=== PATIENT | male | born 1955 | race Caucasian/White ===

== ENCOUNTER 2018-07-02 05:51 | Inpatient (IN) | payer MEDICARE, OTHER, SELFPAY ==
[2018-07-02] MEDS ORDERED: Norepinephrine 8 MG/0.9% NS 250 ML ONE (06:00)
[2018-07-02 06:16] LABS: Actual Bicarbonate (HCO3a) 20.9 mEq/L (22-28); Analyzer IN Cardio ER; Base Excess (BEa) -9.5 mEq/L (-2.0 to +3.0); Carboxyhemoglobin (COHb) 1.5 gm% (0.0-3.0); Hemoglobin (Hb) 15.3 g/dL (14.0-18.0); O2 Tension (PaO2) 264.7 mmHg (> 80.0); Potassium - ABG Lab 5.09 mmol/L (3.70-5.30)
[2018-07-02 06:18] LABS: CO2 Tension 65.2 mmHg (35.0-45.0); Puncture Site RBA; pH, Arterial 7.12 (7.35-7.45)
[2018-07-02 06:38] LABS: #Basophils 0.1 thou/uL (0.0-0.2); #Eosinphils 0.2 thou/uL (0.0-0.7); #Lymphocytes 2.6 thou/uL (1.20-3.40); #Monocytes 0.4 thou/uL (0.11-0.59); #Neutrophils 7.5 thou/uL (1.40-6.50); %Basophils 1.2 % (0.0-1.0); %Eosinophils 2.1 % (0.0-10.0); %Lymphocytes 23.7 % (21.0-51.0); %Monocytes 3.2 % (0.0-10.0); %Neutrophils 69.8 % (42.0-75.0); Mean Corpuscular HGB CONC 31.1 g/dL (32.0-36.0); Mean Corpuscular Hemoglobin 30.6 pg (27.0-31.0); Mean Corpuscular Volume 98.1 fL (78.0-98.0); Mean Platelet Volume 7.6 fL (7.4-10.4); Platelet Count 245 thou/uL (130-400); RBC Distribution Width 11.5 % (11.5-14.5); Red Blood Cell (RBC) Count 4.92 mill/uL (4.70-6.10); White Blood Cell (WBC) Count 10.7 thou/uL (4.8-10.8)
[2018-07-02 06:44] LABS: INR-International Normal Ratio 1.2; PTT 37.6 SEC (22.9-36.1); Prothrombin Time 15.5 SEC (12.0-14.7)
[2018-07-02 07:01] LABS: CK (CPK) 186 U/L (30-200); CRP (Inflammatory) Less than 0.50 mg/dL (= or < 0.5)
[2018-07-02 07:07] LABS: Acetaminophen Less than 6.0 mcg/mL (10.0-30.0); Alcohol Less than 10 mg/dL (Less than 10); Salicylate Less than 8.0 mg/dL (15.0-30.0)
[2018-07-02] MEDS ORDERED: fentaNYL Citrate/PF 2,000 MCG in Sodium Chloride 0.9% 60 ML IV SCH (07:17)
[2018-07-02 07:26] LABS: CKMB 7.4 ng/mL (0-6.6)
--- NOTE | 2018-07-02 08:04 | RAD ---
SINGLE VIEW CHEST: Date: 07/02/18 COMPARISON: None. HISTORY: Code Blue. CPR in progress. Evaluate tube placement. FINDINGS: Single view of the chest shows a normal sized cardiomediastinal silhouette. Endotracheal tube is seen with its tip in good position at the lower border of the clavicles. A NG tube is seen in the stomach . There is no evidence of consolidation, mass, or pleural effusion. IMPRESSION: Appropriate position of lines and tubes. POS: [facility]
[2018-07-02 08:12] LABS: Actual Bicarbonate (HCO3a) 21.5 mEq/L (22-28); Analyzer IN Cardio ER; Base Excess (BEa) -9.2 mEq/L (-2.0 to +3.0); Calcium, Ionized 1.05 mmol/L (1.12-1.30); Carboxyhemoglobin (COHb) 1.2 gm% (0.0-3.0); Hemoglobin (Hb) 15.2 g/dL (14.0-18.0); O2 Tension (PaO2) 103.1 mmHg (> 80.0); Potassium - ABG Lab 5.47 mmol/L (3.70-5.30)
[2018-07-02] MEDS ORDERED: Norepinephrine 8 MG/0.9% NS 250 ML IVPB SCH (08:15)
[2018-07-02] MEDS ORDERED: Amiodarone In Dextrose 200 ML IVPB SCH (08:15)
[2018-07-02] MEDS ORDERED: Dextrose 50% Abboject 50 ML SYRINGE SLOW IVP PRN (08:17)
[2018-07-02] MEDS ORDERED: Dextrose 5% in Water 1,000 ML IV PRN (08:17)
[2018-07-02] MEDS ORDERED: HumaLOG 300 UNITS/3 ML VIAL SC PRN (08:17)
[2018-07-02 08:37] LABS: CO2 Tension 68.6 mmHg (35.0-45.0); Puncture Site RR; pH, Arterial 7.11 (7.35-7.45)
[2018-07-02] MEDS ORDERED: EPINEPHrine 4 MG in Dextrose 5% in Water 250 ML IVPB SCH (09:30)
[2018-07-02] MEDS ORDERED: Amiodarone 450 MG, Admixture Fee 1 EACH in Dextrose 5% in Water 250 ML IVPB SCH (09:30)
--- NOTE | 2018-07-02 09:36 | RAD ---
SINGLE VIEW OF THE CHEST: Comparison: 07-02-18 History: Swollen abdomen. Intubation. FINDINGS: Single view of the chest shows a cardiomediastinal silhouette which is upper limits of normal in size . An endotracheal tube is seen with its tip between the clavicles. A NG tube courses off the film, li marce within the stomach. There is no evidence of consolidation, mass, or pleural effusion. IMPRESSION: Appropriate position of lines and tubes. POS: [facility]
--- NOTE | 2018-07-02 09:37 | RAD ---
KUB: Comparison: None. History: Abdominal swelling. Intubated. FINDINGS: Single view of the abdomen shows a nonspecific, nonobstructed bowel gas pattern. There are a few air filled loops of small bowel in the left upper quadrant of the abdomen. An NG tube is seen with its ti p in the stomach. A right inguinal catheter is visualized. IMPRESSION: 1. Appropriate position of NG tube. 2. Nonspecific, nonobstructed bowel gas pattern. POS: [facility]
[2018-07-02 09:42] LABS: Actual Bicarbonate (HCO3a) 17.6 mEq/L (22-28); Base Excess (BEa) -10.7 mEq/L (-2.0 to +3.0); CO2 Tension 47.8 mmHg (35.0-45.0); Calcium, Ionized 1.05 mmol/L (1.12-1.30); Carboxyhemoglobin (COHb) 1.5 gm% (0.0-3.0); Hemoglobin (Hb) 16.1 g/dL (14.0-18.0); O2 Tension (PaO2) 68.6 mmHg (> 80.0); Potassium - ABG Lab 5.72 mmol/L (3.70-5.30)
[2018-07-02 09:44] LABS: pH, Arterial 7.18 (7.35-7.45)
[2018-07-02 09:45] LABS: Puncture Site RBA
[2018-07-02 10:04] VITALS: BMI 30.8
[2018-07-02 10:04] LABS: ALT (SGPT) 220 U/L (8-55); AST (SGOT) 192 U/L (5-34); Albumin 3.6 g/dL (3.4-4.8); Alkaline Phosphatase 87 U/L (40-150); Anion Gap 17 mmol/L (10-20); BUN (Urea Nitrogen) 20 mg/dL (8.4-25.7); Bilirubin, Total 0.7 mg/dL (0.2-1.2); Calc. Creatinine Clearance 0 mL/min (70-130); Calcium 8.1 mg/dL (7.8-10.44); Carbon Dioxide 20 mmol/L (23-31); Chloride 106 mmol/L (98-107); Estimated GFR-MDRD 50; Globulin 2.5 g/dL (2.4-3.5); Glucose 277 mg/dL (80-115); Potassium 6.2 mmol/L (3.5-5.1); Protein, Total 6.1 g/dL (5.8-8.1); Sodium 137 mmol/L (136-145)
[2018-07-02] MEDS ORDERED: Sodium Bicarb 50 MEQ/50 ML VIAL ONE (10:08)
[2018-07-02] MEDS ORDERED: Vecuronium 10 MG VIAL ONE (10:09)
[2018-07-02 10:27] LABS: Troponin I 0.397 ng/mL (< 0.028)
[2018-07-02 10:48] LABS: Lactic Acid 5.8 mmol/L (0.5-2.2)
[2018-07-02] MEDS ORDERED: Sodium Bicarb 50 MEQ/50 ML Abboject 8.4% SYRINGE IVP SCH (11:15)
[2018-07-02] MEDS ORDERED: Vecuronium 10 MG VIAL IV SCH (11:15)
[2018-07-02] MEDS: Famotidine/PF 20 mg/2ml Vial SLOW IVP SCH ×2 (12:06→21:02)
[2018-07-02 13:31] LABS: CO2 Tension 42.1 mmHg (35.0-45.0); Calcium, Ionized 1.02 mmol/L (1.12-1.30); O2 Tension (PaO2) 77.3 mmHg (> 80.0); Potassium - ABG Lab 4.51 mmol/L (3.70-5.30); pH, Arterial 7.32 (7.35-7.45)
[2018-07-02 13:32] LABS: ALV-art Gradient 155.275 (0-20); Puncture Site RRA
[2018-07-02 14:51] LABS: Troponin I 0.945 ng/mL (< 0.028)
--- NOTE | 2018-07-02 16:02 | HP ---
CHIEF COMPLAINT: Post cardiac arrest with recovery, spontaneous circulation. 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 When EMS arrived, the patient subsequently went into cardiac arrest. The patient had CPR and had two rounds of epinephrine in transit to the hospital. The patient had a total of about 30 minutes of CPR with bicarb given as well. The patient did have one episode of VFib and had cardioversion and amiodarone drip initiated. Currently, the patient has recovery of spontaneous circulation. He is on an epinephrine drip, Levophed drip, and amiodarone drip. He is intubated and ventilated. He appears to be having some spontaneous attempts of respiration above the vent, although they do not appear to be normal. PAST MEDICAL HISTORY: All that is known at this time, apparently, someone talked to the patient's , who indicated he had problems with his heart and with his lungs, but no further details are known. PAST SURGICAL HISTORY: Not known, although the patient does have a midline abdominal incision scar, which is well healed. SOCIAL HISTORY: Presently not known. The patient's is apparently entering the building, we will get more information as soon as possible. CURRENT MEDICATIONS: Not known. PHYSICAL EXAMINATION: VITAL SIGNS: Most recent vital signs; blood pressure 116/75, respirations 16, pulse 60, temperature 93.3, O2 saturation 99%. Blood pressure got as low as 80/65 during his ER stay. GENERAL APPEARANCE: The patient is sedated and intubated. His pupils are mid size and minimally responsive. HEART: Very faint, but regular and bradycardic. CHEST: Lungs have some coarse breath sounds throughout all lung dudley bilaterally. ABDOMEN: Appears to be slightly distended, slightly hyper-tympanitic to percussion. Bowel sounds are normal however. EXTREMITIES: Warm and dry. He has a right femoral triple-lumen catheter. He has a left pretibial intraosseous catheter. He has no significant edema. LABORATORY DATA: White count 10.7, hemoglobin 15.0, and platelets 245. PT 15.5 , INR is 1.2, PTT 37.6. Initial blood gas; pH 7.12, pCO2 of 65, pO2 of 264. Lactic acid 8.1, CK 186, troponin 0.23. CRP is less than 50. BNP is 829.9. Salicylate, acetaminophen, and alcohol are less than 10. Sodium was 136, potassium 5.0, chloride 101. Chest x-ray appears to possibly show some right upper lobe infiltrate and some modest cardiomegaly. IMPRESSION AND PLAN: 1. Cardiac arrest, unclear etiology, likely culprit is acute myocardial infarction, pulmonary embolus, or fairly arrhythmia. The patient has recovery of spontaneous circulation; however, he is on epinephrine and Levophed drip, still bradycardic and still a bit hypothermic. The patient will be admitted to the ICU. ER physician has spoken to Pulmonary Critical Care. We will need to obtain another ABGs as soon as the patient arrives to the floor. We will need to obtain additional history as soon as family can be available to provide aside information. We will consult Cardiology and obtain an echocardiogram and continue to trend troponins as well. The patient may need evaluation for pulmonary embolus with CT angiogram if he can prove himself to be adequately stable for that. At this point, it is unclear if the patient has suffered any anoxic brain injury. We will continue to follow. 2. Possible pneumonia. The patient had 30 minutes of CPR, so chest x-ray is not necessarily reliable; however, he did have antecedent shortness of breath. We will go ahead and cover with Rocephin and azithromycin for community-acquired pneumonia. We will also check a flu screen. 3. Hyperglycemia. We will check Accu-Cheks and give sliding scale. 4. We will obtain a CMP. Job ID: [id number] MTDD
[2018-07-02] MEDS: Enoxaparin Sodium 40 MG/0.4 ML SYRINGE SC SCH (18:31)
[2018-07-02] MEDS ORDERED: Vecuronium 10 MG VIAL IV PRN (20:12)
[2018-07-02] MEDS: niCARdipine HCl 25 MG in Sodium Chloride 0.9% 250 ML 240 ML IVPB SCH (21:02)
[2018-07-02] MEDS: Sodium Chloride 0.9% 1,000 ML IV PRN (23:34)
[2018-07-03] MEDS: Sodium Chloride 0.9% 1,000 ML IV PRN ×6 (01:06→12:09)
[2018-07-03] MEDS: niCARdipine HCl 25 MG in Sodium Chloride 0.9% 250 ML 240 ML IVPB SCH (03:52)
[2018-07-03 07:19] LABS: Actual Bicarbonate (HCO3a) 28.2 mEq/L (22-28); CO2 Tension 44.5 mmHg (35.0-45.0); Calcium, Ionized 1.04 mmol/L (1.12-1.30); Carboxyhemoglobin (COHb) 1.1 gm% (0.0-3.0); Hemoglobin (Hb) 16.3 g/dL (14.0-18.0); Potassium - ABG Lab 3.18 mmol/L (3.70-5.30); pH, Arterial 7.42 (7.35-7.45)
[2018-07-03 07:20] LABS: ALV-art Gradient 179.075 (0-20); O2 Tension (PaO2) 50.5 mmHg (> 80.0); Puncture Site RRA
--- NOTE | 2018-07-03 07:25 | HP ---
ADDENDUM: The patient's family arrived and we were able to get some additional information. The patient does have a history of COPD, which apparently is fairly debilitating for him. He continues to work, but reports he can normally walk from the house to his truck and back a time or two before he starts getting substantially short of breath. He is on nebulizers and inhalers q.i.d. He also has a history of diabetes and hypertension. She reports that he follows with Dr. Kang at the [place]. She gives additional history that he has been short of breath for about a month, otherwise he was generally functional. He has had no new cough other than his baseline cough. He has had no fevers or chills. She reports he leaves for work about 1:30 in the morning and when he left today he was doing fine. He is still smoking half a pack of cigarettes per day, but that is trending down from his baseline of two packs per day. He also drinks 4 to 6 beers per day. PAST SURGICAL HISTORY: Notable for a ventral hernia repair x2. He also appears to have old appendectomy scar. FAMILY HISTORY: Notable for father who of an [place] and his mother still alive at 84. ALLERGIES: THE PATIENT HAS NO KNOWN ALLERGIES. IMMUNIZATION: He had a flu and pneumonia shot on Sunday at his physician's appointment at that time. We will also have his medication list which we will flush out shortly. Job ID: [id number]
[2018-07-03] MEDS: cefTRIAXone\\ROCEPHIN 1 GM in Sodium Chloride 0.9% 100 ML IVPB SCH (08:00)
--- NOTE | 2018-07-03 08:31 | CON ---
DATE OF CONSULTATION: 07/02/2018 HISTORY OF PRESENT ILLNESS: Mr. Glez is an unfortunate gentleman who had an [id number] cardiac arrest today. He has been complaining of shortness of breath leading up to that. He had a prolonged period of out of hospital resuscitation attempts lasting at least 30 minutes. The rhythm was restored when arrived here. An echocardiogram has been done, showing ejection fraction of 10% to 15% with an enlarged left ventricle suggesting that this is an acutely depressed ejection fraction. He has a history of COPD, followed at the OR. He has no prior history of heart disease. He has never been hospitalized here before. FAMILY HISTORY: Negative for lung disease in early age. SOCIAL HISTORY: In spite of having diagnosis of COPD, his family says he continues to smoke. No history of cardiovascular events in the past. REVIEW OF SYSTEMS: Unobtainable. PHYSICAL EXAMINATION: HEENT: Very sluggish pupil. He has myoclonic eye opening, but no eye opening with focus or localization. He did not respond to sternal rub. LUNGS: Remarkable for coarse rhonchi. HEART: Regular rhythm. ABDOMEN: Soft. He is having abdominal scar. EXTREMITIES: Without clubbing, cyanosis, or edema. IMAGING: Chest radiograph surprisingly does not show significant pulmonary edema. LABORATORY DATA: White count 10.7, hemoglobin 15, platelets 245. Sodium 137, potassium 6.2, chloride 106, bicarb 20, BUN 20, creatinine 1.42. Last blood gas at 1328 hours, pH 7.33, pCO2 of 43, pO2 of 77 with calcium of 4.5. IMPRESSION: [id number]-[id number] cardiac arrest, most likely either secondary to his chronic obstructive pulmonary disease or an undiagnosed cardiomyopathy. I think the latter is probably more likely than the former, although having chronic obstructive pulmonary disease probably did not help. In any event, he clinically appears to have suffered a severe hypoperfusion brain injury. I have explained to the family that we will give him another chance to wake up over the next 48 to 72 hours. I also recommended against repeat CPR. It has been recommended that they make him a do not resuscitate patient, they agreed to this and this was witnessed by his nurse. We will continue aggressive care, though we do not expect him to have any type of functional recovery. The family clearly states that he would never want to be in the long-term care environment or in the [place] [facility]. Critical care time is 30 minutes. Job ID: [id number] MTDD
[2018-07-03] MEDS: Enoxaparin Sodium 40 MG/0.4 ML SYRINGE SC SCH (09:33)
[2018-07-03] MEDS: Azithromycin 500 MG in Sodium Chloride 0.9% 250 ML 250 ML IVPB SCH (09:33)
[2018-07-03] MEDS: Famotidine/PF 20 mg/2ml Vial SLOW IVP SCH ×2 (09:34→21:43)
--- NOTE | 2018-07-03 12:38 | CON ---
DATE OF CONSULTATION: CRITICAL CARE NOTE: TIME: One hour. HISTORY OF PRESENT ILLNESS: The patient is an unfortunate 63-year-old gentleman , who suffered a cardiac arrest. The patient has no previous cardiac history. According to the family, the patient has noted recently having increasing dyspnea. 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 The patient was resuscitated for a prolonged period of time. He was eventually sent here to [facility] for further management. The patient is intubated at this time and unable to give a coherent history. According to the patient's family, he has a long history of ethanol and tobacco abuse. PAST MEDICAL HISTORY: 1. COPD. 2. Diabetes mellitus. 3. Hypertension. PAST SURGICAL HISTORY: SOCIAL HISTORY: He drinks 4 to 6 cans of beer a day. ALLERGIES: NO KNOWN DRUG ALLERGIES. MEDICATIONS: Medications on admission: 1. Metoprolol 25 XL daily. 2. Glipizide 2.5 b.i.d. 3. Metformin 750 daily. 4. Losartan 25 b.i.d. PHYSICAL EXAMINATION: GENERAL: Obtunded gentleman. He is obese. VITAL SIGNS: Blood pressure of 130/50 on an inotropic support, heart rate of 50. NECK: Full. LUNGS: Coarse breath sounds bilaterally. HEART: Regular rate and rhythm. Normal S1 and S2. ABDOMEN: Distended. EXTREMITIES: Showed no edema. LABORATORY DATA: White blood cell count 10.7, hemoglobin 15.0, hematocrit 48.3 , and platelets are 245. Sodium 137, potassium 6.2, chloride 106, bicarbonate 20, BUN 20, creatinine is 1.4, glucose is 277. Troponin was 0.397. His INR is 1.2. EKG revealed normal sinus rhythm with a nonspecific T-wave abnormality. IMPRESSION: 1. Status post cardiac arrest. 2. Severe cardiomyopathy. 3. Chronic obstructive pulmonary disease. 4. Diabetes mellitus. 5. Hypertension. 6. Ethanol abuse. 7. Tobacco abuse. This unfortunate gentleman has a severe cardiomyopathy. He may have suffered a probable primary arrhythmic event. There was no evidence of an acute myocardial injury on his electrocardiogram. We will follow this patient with you through his hospitalization. If he recovers, then he will need cardiac catheterization and probable AICD placement. Job ID: [id number] [facility]
--- NOTE | 2018-07-03 15:03 | PDOC.PN ---
- Subjective Encounter Start Date: 07/03/18 Encounter Start Time: 12:00 Subjective: on vent, unresponsive, not seen moving any extre -: and daughter at bedside - Objective Resuscitation Status - Order Detail: 07/02/18 14:13 Resuscitation Status Routine Resuscitation Status: DNAR: NO Resuscitation Discussed with: discussed with family MAR Reviewed: Yes Vital Signs & Weight: Vital Signs (12 hours) Pulse Resp BP Pulse Ox 07/03/18 14:16 112 H 123/75 07/03/18 12:32 100 151/97 H 07/03/18 12:31 102 H 26 H 93 L 07/03/18 12:00 26 H 07/03/18 10:38 98 142/84 H 07/03/18 10:00 26 H 07/03/18 08:00 26 H 96 07/03/18 06:47 102 H 145/86 H 07/03/18 06:45 103 H 26 H 89 L 07/03/18 06:00 26 H 07/03/18 04:00 26 H Weight Admit Weight 202 lb Weight 202 lb 13.204 oz Most Recent Monitor Data Heart Rate from ECG 101 NIBP 134/74 NIBP BP-Mean 94 Respiration from ECG 26 SpO2 90 I&O: 07/02/18 07/03/18 07/04/18 06:59 06:59 06:59 Intake Total 5775.8 1631 Output Total 5510 1215 Balance 265.8 416 Result Diagrams: 07/02/18 06:19 07/02/18 09:32 Additional Labs: Accuchecks 07/03/18 07/03/18 07/02/18 11:32 04:06 18:40 POC Glucose 133 H 176 H 255 H Phys Exam - Physical Examination HEENT: sclera anicteric pupils are 4mm, very sluggish to light Neck: no JVD, supple Respiratory: no wheezing, no rales Cardiovascular: RRR, no significant murmur Gastrointestinal: soft, non-tender, positive bowel sounds Musculoskeletal: no edema, pulses present Neurological: non-focal Dx/Plan (1) s/p cardiac arrest Status: Acute Comment: with 30 min of cpr and marie (2) Anoxic brain damage Status: Acute (3) Cardiomyopathy Code(s): I42.9 - CARDIOMYOPATHY, UNSPECIFIED Status: Acute Qualifiers: Cardiomyopathy type: unspecified Qualified Code(s): I42.9 - Cardiomyopathy , unspecified Comment: ef of 10% (4) COPD (chronic obstructive pulmonary disease) Status: Chronic Qualifiers: COPD type: chronic bronchitis (5) DM type 2 (diabetes mellitus, type 2) Status: Chronic Qualifiers: Diabetes mellitus group home insulin use: without group home use Diabetes mellitus complication status: with unspecified complications Qualified Code(s) : E11.8 - Type 2 diabetes mellitus with unspecified complications (6) Tobacco abuse Code(s): Z72.0 - TOBACCO USE Status: Chronic (7) TERESA (acute kidney injury) Code(s): N17.9 - ACUTE KIDNEY FAILURE, UNSPECIFIED Status: Acute - Plan on vent, likely has anoxic brain damage -: await neurologic function recovery if any in next 24-36hrs -: had eeg done -: has poor ef, likely had vent arrythmias and cardiac arrest -: gave updates to and children at bedside, are aware of poor prognosis * . Review of Systems - Medications/Allergies Allergies/Adverse Reactions: Allergies Allergy/AdvReac Type Severity Reaction Status Date / Time No Allergy Information Allergy Unverified 07/02/18 07:17 Available Medications: Current Medications Albuterol/Ipratropium (Duoneb) 3 ml NEB [id number] [facility] Last Admin: 07/03/18 12:31 Dose: 3 ml Desmopressin Acetate (Ddavp) 2 mcg IVP 1200,2359 [facility] Last Admin: 07/03/18 12:06 Dose: 2 mcg Dextrose/Water (Dextrose 50%) 25 gm SLOW IVP PRN PRN PRN Reason: Hypoglycemia Enoxaparin Sodium (Lovenox) 40 mg SC 0900 [facility] Last Admin: 07/03/18 09:33 Dose: 40 mg Famotidine (Pepcid) 20 mg SLOW IVP BID [facility] Last Admin: 07/03/18 09:34 Dose: 20 mg Glucagon (Glucagon) 1 mg IM PRN PRN PRN Reason: Hypoglycemia Fentanyl Citrate 2,000 mcg/ (Sodium Chloride) 100 mls @ 0 mls/hr IV INF JONATHAN; Protocol Stop: 08/01/18 07:17 Norepinephrine Bitartrate (Levophed) 250 mls @ 0 mls/hr IVPB INF JONATHAN; Protocol Azithromycin 500 mg/ Sodium (Chloride) 250 mls @ 250 mls/hr IVPB 0900 [facility] Last Admin: 07/03/18 09:33 Dose: 250 mls Ceftriaxone Sodium 1 gm/ (Sodium Chloride) 100 mls @ 200 mls/hr IVPB 0800 [facility] Last Admin: 07/03/18 08:00 Dose: 100 mls Dextrose/Water (D5w) 1,000 mls @ 0 mls/hr IV .Q0M PRN PRN Reason: Hypoglycemia Amiodarone HCl 450 mg/Miscellaneous Medication 1 each/ Dextrose/Water 259 mls @ 0 mls/hr IVPB INF JONATHAN; Protocol Last Admin: 07/03/18 03:51 Dose: 259 mls Epinephrine 4 mg/ Dextrose/ (Water) 254 mls @ 0 mls/hr IVPB INF JONATHAN; Protocol Nicardipine HCl 25 mg/ Sodium (Chloride) 250 mls @ 0 mls/hr IVPB INF JONATHAN; Protocol Last Admin: 07/03/18 03:52 Dose: 250 mls Sodium Chloride (Normal Saline 0.9%) 1,000 mls @ 0 mls/hr IV PRN PRN PRN Reason: PER URINE OUTPUT Last Admin: 07/03/18 12:09 Dose: 1,000 mls Insulin Human Lispro (Humalog) 0 units SC .MILD SLIDING SCALE PRN PRN Reason: Mild Correctional Scale Sodium Chloride (Flush - Normal Saline) 10 ml IVF Q12HR [facility] Last Admin: 07/03/18 09:34 Dose: 10 ml Sodium Chloride (Flush - Normal Saline) 10 ml IVF PRN PRN PRN Reason: Saline Flush Vecuronium Gilbert (Norcuron) 10 mg IV Q1H PRN PRN Reason: MOVEMENT Last Admin: 07/02/18 20:45 Dose: 10 mg
--- NOTE | 2018-07-03 15:53 | EKG ---
Test Reason : Blood Pressure : / mmHG Vent. Rate : 086 BPM Atrial Rate : 086 BPM P-R Int : 196 ms QRS Dur : 092 ms QT Int : 426 ms P-R-T Axes : 078 048 106 degrees QTc Int : 509 ms Normal sinus rhythm Nonspecific T wave abnormality Prolonged QT Abnormal ECG Confirmed by JACKIE TALBOT ([id number]), photographic editor VEE OMER ([id number]) on 07/03/2018 3:53:15 PM Referred By: Confirmed By:JACKIE TALBOT
--- NOTE | 2018-07-03 18:20 | PRG ---
DATE OF SERVICE: SUBJECTIVE: Addison Glez has less neurological findings than he had yesterday. He has a weak cough. No gag. No corneal. His pupils are fixed. He developed massive urine output suggestive of diabetes insipidus last night. DDAVP was started. OBJECTIVE: LUNGS: Remarkable for rhonchi bilaterally. HEART: Regular rhythm. ABDOMEN: Soft. EXTREMITIES: Without asymmetry. He had nonsustained ventricular tachycardia for a long time last night, spontaneously broke. Echocardiogram showed ejection fraction of 10% to 15%. Chest radiograph shows pulmonary edema yesterday. No radiograph was done today. IMPRESSION: 1. Severe anoxic brain injury. 2. Diabetes insipidus. 3. Severe systolic cardiomyopathy with sudden cardiac . 4. Nonsustained ventricular tachycardia last night. PLAN: Continue supportive care. Per my discussion with family, he is a do not resuscitate patient. I met with the family twice today and explained to them that I do not expect him to survive much longer. Critical care time 30 minutes. Job ID: [id number]
[2018-07-03] MEDS ORDERED: Amiodarone 150 MG/3 ML VIAL ONE (23:00)
[2018-07-03] MEDS ORDERED: EPINEPHrine 1 MG/10 ML Abboject SYRINGE ONE (23:00)
[2018-07-03] MEDS ORDERED: Sodium Bicarb 50 MEQ/50 ML Abboject 8.4% SYRINGE ONE (23:00)
[2018-07-04 07:19] VITALS: BP 46/33
[2018-07-04 08:31] VITALS: TEMP 99.3
[2018-07-04] MEDS: cefTRIAXone\\ROCEPHIN 1 GM in Sodium Chloride 0.9% 100 ML IVPB SCH (09:51)
[2018-07-04] MEDS: Azithromycin 500 MG in Sodium Chloride 0.9% 250 ML 250 ML IVPB SCH (09:52)
[2018-07-04] MEDS: Enoxaparin Sodium 40 MG/0.4 ML SYRINGE SC SCH (09:52)
[2018-07-04] MEDS: Famotidine/PF 20 mg/2ml Vial SLOW IVP SCH (09:53)
--- NOTE | 2018-07-04 10:01 | EEG ---
Referring Physician: Shakira BECK EEG # [id number] TEST TYPE: ROUTINE PORTABLE REPORT: AN EEG USING THE INTERNATIONAL TEN-TWENTY SYSTEM OF ELECTRODE PLACEMENT WAS PERFORMED. The waking background is a low amplitude 5-6 hertz theta frequency at best. There is superimposed artifact which precludes some interpretation. Photic stimulation was unremarkable. No epileptiform features were seen. IMPRESSION: THIS IS AN ABNORMAL STUDY FOR THE FINDINGS OF DIFFUSE SUPPRESSION AND SLOWING CONSISTENT WITH A DIFFUSE ENCEPHALOPATHIC PROCESS. Bushel Worker: TY Furnace Utility Operator: [email or web address] BURROUGHS
[2018-07-04] MEDS ORDERED: Morphine 4 MG/ML VIAL SLOW IVP PRN (12:07)
--- NOTE | 2018-07-04 13:02 | PDOC.PN ---
- Subjective Encounter Start Date: 07/04/18 Encounter Start Time: 07:45 Subjective: obtunded, family at bedside - Objective Resuscitation Status - Order Detail: 07/02/18 14:13 Resuscitation Status Routine Resuscitation Status: DNAR: NO Resuscitation Discussed with: discussed with family MAR Reviewed: Yes Vital Signs & Weight: Vital Signs (12 hours) Temp Pulse Resp BP Pulse Ox 07/04/18 12:00 26 H 07/04/18 10:00 26 H 07/04/18 08:00 99.3 F 26 H 86 L 07/04/18 07:18 73 46/33 L 07/04/18 07:17 73 26 H 93 L 07/04/18 05:52 26 H 07/04/18 04:00 26 H 07/04/18 02:00 26 H Weight Admit Weight 202 lb Weight 202 lb 13.204 oz Most Recent Monitor Data Heart Rate from ECG 73 NIBP 46/32 NIBP BP-Mean 36 Respiration from ECG 24 SpO2 94 I&O: 07/03/18 07/04/18 07/05/18 06:59 06:59 06:59 Intake Total 5775.8 1797 Output Total 5510 1540 0 Balance 265.8 257 0 Result Diagrams: 07/02/18 06:19 07/02/18 09:32 Phys Exam - Physical Examination HEENT: sclera anicteric dry mucosa Neck: no JVD, supple Respiratory: no wheezing, no rales Cardiovascular: RRR, no significant murmur Gastrointestinal: soft, no distention, positive bowel sounds Musculoskeletal: no edema, pulses present Dx/Plan (1) s/p cardiac arrest Status: Acute Comment: with 30 min of cpr and marie (2) Anoxic brain damage Status: Acute (3) Cardiomyopathy Code(s): I42.9 - CARDIOMYOPATHY, UNSPECIFIED Status: Acute Qualifiers: Cardiomyopathy type: unspecified Qualified Code(s): I42.9 - Cardiomyopathy , unspecified Comment: ef of 10% (4) COPD (chronic obstructive pulmonary disease) Status: Chronic Qualifiers: COPD type: chronic bronchitis (5) DM type 2 (diabetes mellitus, type 2) Status: Chronic Qualifiers: Diabetes mellitus longterm insulin use: 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 Review of Systems - Medications/Allergies Allergies/Adverse Reactions: Allergies Allergy/AdvReac Type Severity Reaction Status Date / Time No Allergy Information Allergy Unverified 07/02/18 07:17 Available Medications: Current Medications Dextrose/Water (Dextrose 50%) 25 gm SLOW IVP PRN PRN PRN Reason: Hypoglycemia Glucagon (Glucagon) 1 mg IM PRN PRN PRN Reason: Hypoglycemia Fentanyl Citrate 2,000 mcg/ (Sodium Chloride) 100 mls @ 0 mls/hr IV INF JONATHAN; Protocol Stop: 08/01/18 07:17 Dextrose/Water (D5w) 1,000 mls @ 0 mls/hr IV .Q0M PRN PRN Reason: Hypoglycemia Sodium Chloride (Normal Saline 0.9%) 1,000 mls @ 0 mls/hr IV PRN PRN PRN Reason: PER URINE OUTPUT Last Admin: 07/03/18 12:09 Dose: 1,000 mls Morphine Sulfate (Morphine) 4 mg SLOW IVP Q15MIN PRN PRN Reason: AIR HUNGER Sodium Chloride (Flush - Normal Saline) 10 ml IVF Q12HR JONATHAN Last Admin: 07/03/18 21:43 Dose: Not Given Sodium Chloride (Flush - Normal Saline) 10 ml IVF PRN PRN PRN Reason: Saline Flush
--- NOTE | 2018-07-04 13:15 | PRG ---
DATE OF SERVICE: 07/04/2018 Addison Glez is neurologically unchanged. He does have some mild spontaneous respiratory effort. His blood pressure had been in the 40s to 50s all night. Family is all at the bedside. Lungs, heart, abdomen, and extremities are unchanged. There is no real benefit to continuing to go on, but because the daughters were very upset, they have lost another family member recently, I elected to continue awaiting his passing. I explained I would expect him to make another 12 to 24 hours. I was contacted a little while ago by the nurse who told me the wanted to withdraw care and have him extubated, so the orders were given to do this. He will be released to home. Job ID: [id number]
--- NOTE | 2018-07-04 16:00 | DIS ---
DATE OF ADMISSION: 07/02/2018 DATE OF DISCHARGE: 07/04/2018 SUMMARY DATE OF : 07/04/2018 at 1305. PRIMARY CAUSE OF : Sudden cardiac arrest due to severe cardiomyopathy with ejection fraction of around 10%, anoxic brain damage due to prolonged CPR of 30 minutes or so, acute respiratory failure, acute encephalopathy due to anoxic brain injury. SECONDARY DISCHARGE DIAGNOSES: Tobacco abuse, chronic obstructive pulmonary disease, diabetes mellitus, and acute kidney injury. BRIEF COURSE DURING HOSPITALIZATION: The patient initially was brought by EMS after he called [address]. When EMS arrived, the patient subsequently went into cardiac arrest. CPR was started and 2 rounds of epinephrine was given en route to hospital. He had a total of 30 minutes of CPR done and had an episode of VFib with cardioversion and amiodarone drip initiated during the transit. The patient had recovery of spontaneous circulation and was intubated and admitted to ICU. The patient was encephalopathic on arrival. Further workup during his stay here revealed ejection fraction of 10% to 15% with diastolic dysfunction as well. He has had consultation with Dr. Garcia for Pulmonology and Dr. Chester for Cardiology. The patient was on pressors and was covered with broad-spectrum antibiotics as well. His encephalopathy and anoxic brain injury have not improved since he was admitted. The patient also progressively started to decline with systolic blood pressures dropping down to 40s. Family wanted him to be a [id number] and then went in for withdrawal of care around 1:05 p.m., this afternoon due to very poor prognosis and imminent . The patient was declared at 1316 this afternoon. Body will be released to the family per hospital protocol. Job ID: [id number] [id number]
== END 2018-07-04 16:00 | disposition expired | DRG 314 ==
LOC: ERS 05:51 → EDBD 05:51 → CCU 07:33
PROVIDERS: ADMIT Internal Medicine; ATTEND Internal Medicine
PROC: 3E033XZ Introduction of Vasopressor into Peripheral Vein, Percutaneous Approach (ICD-10-PCS; principal; 2018-07-02)
PROC: 5A1945Z Respiratory Ventilation, 24-96 Consecutive Hours (ICD-10-PCS; 2018-07-02)
PROC: 0BH17EZ Insertion of Endotracheal Airway into Trachea, Via Natural or Artificial Opening (ICD-10-PCS; 2018-07-02)
PROC: 5A12012 Performance of Cardiac Output, Single, Manual (ICD-10-PCS; 2018-07-02)
PROC: 06HM33Z Insertion of Infusion Device into Right Femoral Vein, Percutaneous Approach (ICD-10-PCS; 2018-07-02)
PROC: 4A00X4Z Measurement of Central Nervous Electrical Activity, External Approach (ICD-10-PCS; 2018-07-03)
DX: I42.9 Cardiomyopathy, unspecified (principal); J96.00 Acute respiratory failure, unspecified whether with hypoxia or hypercapnia; G93.1 Anoxic brain damage, not elsewhere classified; N17.9 Acute kidney failure, unspecified; G93.40 Encephalopathy, unspecified; I47.2 Ventricular tachycardia; E23.2 Diabetes insipidus; J44.9 Chronic obstructive pulmonary disease, unspecified; E11.65 Type 2 diabetes mellitus with hyperglycemia; I10 Essential (primary) hypertension; I46.2 Cardiac arrest due to underlying cardiac condition; F17.210 Nicotine dependence, cigarettes, uncomplicated; Z66 Do not resuscitate; F10.10 Alcohol abuse, uncomplicated; Z79.51 Long term (current) use of inhaled steroids; Z79.84 Long term (current) use of oral hypoglycemic drugs; Z82.49 Family history of ischemic heart disease and other diseases of the circulatory system
CPT/HCPCS: 36416; 71045; 74018; 80053; 80307; 82550; 82553; 82805; 83605; 83880; 84484; 85025; 85610; 85730; 86140; 87040; 93005; 93306; 94002; 94003; 95816; 95819; J0171; J0282; J0456; J0696; J1650; J2597; J3010; J7050; J7070; J7620; S0028